=== PATIENT | female | born 1960 | race Hispanic/Latino ===

== ENCOUNTER → 2023-04-25 | Outpatient (REF) | payer MEDICARE | LOC: MAMMO 11:12 | PROVIDERS: ATTEND Family Medicine | DX: N64.9 Disorder of breast, unspecified (principal) ==

== ENCOUNTER → 2024-04-28 | Outpatient (REF) | payer MEDICARE | LOC: MAMMO 09:08 | PROVIDERS: ATTEND Family Medicine | DX: Z12.31 Encounter for screening mammogram for malignant neoplasm of breast (principal) | CPT/HCPCS: 77067 ==